=== PATIENT | male | born 1925 | race Caucasian/White ===

== ENCOUNTER 2017-04-28 17:35 | Emergency (ER) | payer OTHER, MEDICARE ==
[~2017-04-28] VITALS: Ht 182.9 cm; Wt 92.1 kg
--- NOTE | 2017-04-28 17:50 | ED NEURO DEFICIT/STROKE ---
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 Source: patient, old records Exam Limitations: no limitations Vital Signs & Intake/Output Vital Signs & Intake/Output Vital Signs Date Time Temp Pulse Resp B/P B/P Pulse O2 O2 Flow FiO2 Mean Ox Delivery Rate 04/28 1954 98.7 79 17 162/94 96 Room Air 04/28 1855 98.5 78 18 170/94 96 04/28 1834 99 Room Air Allergies Coded Allergies: No Known Allergies (04/28/17) Reconcile Medications Apixaban (Eliquis) 5 MG TABLET 1 TAB PO DAILY BLOOD THINNER (Reported) Metoprolol Tartrate 50 MG TABLET 1 TAB PO BID HEART/BP (Reported) Multivitamin (Multi-Day Vitamins) 1 EACH TABLET 1 TAB PO DAILY SUPPLEMENT ( Reported) Pantoprazole Sodium 40 MG TABLET.DR 1 TAB PO DAILY GI (Reported) Simvastatin (Simvastatin*) 20 MG TABLET 1 TAB PO QPM CHOLESTEROL (Reported) Triage Note: PT TO ED FOR L ARM NUMBNESS/TINGLING THAT STARTED APPROX 30 MINS ICE HOCKEY COACH AFTER BENDING ON FLOOR. PT ALSO FELT NAUSEAS AFTER STANDING UP. ALL NEUROS IN TACT, PER FAMILY NO SLURRED SPEECH OR CHANGE IN MENTATION. PT A/O X 3 IN TRIAGE. DENIES CHEST PAIN OR SOB. Triage Nurses Notes Reviewed? yes Onset: Abrupt Duration: hour(s): (1), constant Timing: recent history Severity: mild, moderate Altered Sensations: LUE Vision Problem? No Baseline: alert, oriented x 3 Associated Symptoms: denies HPI: 89-year-old male with history of A. fib colon cancer with colostomy, TIAs on elliquis presents to ER for evaluation with his family complaining of left arm tingling numbness that came on sudden in onset. The patient states that he was on his hands and knees in the bathroom attempting to find a screw that a lot of the door area states when he stood back up if he had the symptoms. He denies any decreased strength in his arm. No pain no right arm or lower extremity numbness tingling or pain. No headache he did not hit his head no neck or back pain chest pain palpitations. No history of similar symptoms in the past no change in his mental status per family no facial droop no slurred speech. The patient denies any facial numbness. No vision changes no headache (SHANTANU LAYTON) Past History Travel History Traveled to [place] past 21 day No Medical History Any Pertinent Medical History? see below for history Cardiovascular: AFIB, PACER MAKER Gastrointestinal: COLOSTOMY Cancer(s): COLON CANCER Surgical History Surgical History: non-contributory Psychosocial History Who do you live with Spouse What is your primary language Czech Tobacco Use: Quit >30 days ago ETOH Use: denies use Illicit Drug Use: denies illicit drug use Family History Hx Contributory? No (SHANTANU LAYTON) Review of Systems Review of Systems Constitutional: Reports: see HPI. All Other Systems: Reviewed and Negative Comments Review of systems: See HPI, All other systems negative. Constitutional, no chills no fever, no malaise HEENT: No visual changes no sore throat no congestion, no ear pain Cardiovascular: No chest pain , no palpitation , no orthopnea Skin: no rashes, no change in skin Respiratory: No dyspnea no cough no sputum GI: No nausea no vomiting, no diarrhea, : No dysuria No hematuria, no frequency Muscle skeletal: No joint pain, no joint swelling, no back pain, no neck pain, Neurologic: numbness no confusion, no headache Psych: No stress no depression,. Heme/endocrine: No bruising no bleeding Immunology: No lymphadenopathy (SHANTANU LAYTON) Physical Exam Physical Exam General Appearance: well developed/nourished, alert, awake Cranial Nerves: normal hearing, normal speech, PERRL Reflexes: 2+: tricep (L), tricep (L). Comments: Well-developed well-nourished person in no acute distress HEENT: Normal EENT exam; PERRL, EOMI, no nystagmus. HEAD is atraumatic. moist mucous membranes. Neck: Supple, no bruit normal range of motion Back: Nontender, no CVA tenderness. Full range of motion Cardiovascular: Regular rate and rhythms no murmurs rubs Respiratory: Chest nontender.There were no bony deformities, no asymmetry. No respiratory distress. Patient speaking in full complete sentences. Breath sounds clear to auscultation bilaterally: NO W/R/R Abdomen: Soft, nontender nondistended, no appreciable organomegaly. Normal bowel sounds. No rebound/guarding, Extremity: No edema, full range of motion of extremities, normal and equal pulses bilaterally, 5 out of 5 strength noted to bilateral upper and lower extremities Neuro: Alert oriented x3, motor sensory normal, There were no obvious focal neurologic abnormalities. Skin: No appreciable rash on exposed skin, skin is warm and dry. Psych: Mood and affect is normal, memory and judgment is normal. Core Measures CVA/TIA Diagnosis: No Severe Sepsis Present: No Septic Shock Present: No (JEAN MARCANO,SHANTANU) Progress Differential Diagnosis: electrolyte imbalance, hypoglycemia, intracranial Hem., intracranial mass/tumor, migraine HANSON, stroke, subarachnoid Hem., vertebrobasilar insuff., cervical radiculopathy Plan of Care: Orders Procedure Date/time Status Telemetry/Tray Filler 04/28 1800 Active PARTIAL THROMBOPLASTIN TIME 04/28 1800 Complete PROTHROMBIN TIME 04/28 1800 Complete TROPONIN LEVEL 04/28 1745 Complete COMPREHENSIVE METABOLIC PANEL 04/28 1745 Complete CBC WITHOUT DIFFERENTIAL 04/28 1745 Complete EKG 04/28 1745 Active Laboratory Tests 04/28/17 1854: Anion Gap 10, Estimated GFR > 60, BUN/Creatinine Ratio 13.8, Glucose 106 H, Calcium 8.9, Total Bilirubin 0.6, AST 11 L, ALT 35, Alkaline Phosphatase 70, Troponin I < 0.01, Total Protein 6.6, Albumin 4.0, Globulin 2.6, Albumin/ Globulin Ratio 1.5 04/28/17 1828: PT 13.6 H, INR 1.30 H, APTT 34, CBC w Diff NO MAN DIFF REQ, RBC 4.22 L, MCV 95.6 H, MCH 32.4 H, RDW 14.0, MPV 8.3, Gran % 74.2, Lymphocytes % 11.9 L, Monocytes % 7.1, Eosinophils % 4.8, Basophils % 2.0, Absolute Granulocytes 5.5, Absolute Lymphocytes 0.9 L, Absolute Monocytes 0.5, Absolute Eosinophils 0.4, Absolute Basophils 0.1, PUBS MCHC 33.9 Labs ordered old records reviewed CAT scan ordered case discussed with Dr. walker 04/28/2017 7:49:05 PM patient reports his symptoms have resolved. pt amb around the er with steady gait I discussed with the patient at length all of their results. I advised that he continue check his blood pressures at home they have a monitor and will use it he'll follow-up with Dr. Tellez tomorrow I had an extensive conversation regarding need for close follow up with their primary care physician this week as well as return precautions. I answered all of their questions, they feel comfortable with the plan and follow-up care. (SHANTANU LAYTON) Diagnostic Imaging: Viewed by Me: CT Scan. Discussed w/RAD: CT Scan. Radiology Impression: PATIENT: PAIGE BLOUNT PRESENT AGE: 89 PATIENT ACCOUNT NO: [id number] : [birth year] LOCATION: [facility] ORDERING PHYSICIAN: SHANTANU MARCANO SERVICE DATE: 04/28/17 EXAM TYPE: CAT - CT HEAD WO IV CONTRAST EXAMINATION: CT HEAD WITHOUT CONTRAST CLINICAL INFORMATION: Left arm numbness. Assess for intracranial hemorrhage. COMPARISON: Head CT performed 07/10/2016. TECHNIQUE: Contiguous axial imaging was performed from the skull base to vertex without intravenous administration of contrast. DLP: 701 mGy-cm FINDINGS: There is no evidence of acute intracranial hemorrhage or territorial infarction. No abnormal mass effect or midline shift is seen. Saenz to white matter differentiation is well preserved. No extra-axial fluid collections are identified. The ventricles and sulcal spaces are proportionate without hydrocephalus. There is diffuse periventricular white matter hypoattenuation, which is consistent with sequela of ischemic microangiopathy. The osseous structures and soft tissues demonstrate no acute abnormalities. Mastoid air cells are aerated. Mild paranasal sinus mucosal thickening. IMPRESSION: No acute intracranial pathology. 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 DICTATED BY: REBEKAH PARK MD DATE/TIME DICTATED:04/28/171847 DEMAND PLANNING ANALYST:DEEP DATE/TIME TRANSCRIBED:04/28/171847 CONFIDENTIAL, DO NOT COPY WITHOUT APPROPRIATE AUTHORIZATION. <Electronically signed in Other Vendor System> SIGNED BY: REEBKAH PARK MD 04/28/171857 Initial ED EKG: V paced at 70, no acute ST segment changes left bundle branch block Prior EKG: unchanged (11/2013) (SHANTANU LAYTON) Departure Departure Time of Disposition: 1948 Disposition: HOME OR SELF CARE Condition: Stable Clinical Impression Primary Impression: Arm paresthesia, left Referrals: Lida TELLEZ MD (PCP/Family) Additional Instructions: Follow up with Dr. Tellez tomorrow. Return to ER anytime sooner with any concerns. Departure Forms: Customer Survey General Discharge Information (JEAN MARCANO,SHANTANU) PA/DELPHI PROGRAMMER Co-Sign Statement Statement: ED Attending supervision documentation- [] I saw and evaluated the patient. I have also reviewed all the pertinent lab results and diagnostic results. I agree with the findings and the plan of care as documented in the PA's/DELPHI PROGRAMMER's documentation. [x] I have reviewed the ED Record and agree with the PA's/DELPHI PROGRAMMER's documentation. [] Additions or exceptions (if any) to the PAs/DELPHI PROGRAMMER's note and plan are summarized below: [] (NIDIA ORDONEZ,CINDI Basilio)
[2017-04-28 18:51] LABS: ABSOLUTE BASOPHIL COUNT 0.1 /CUMM (0.0-0.2); ABSOLUTE EOSINOPHIL COUNT 0.4 /CUMM (0.0-0.7); ABSOLUTE GRANULOCYTE CT 5.5 /CUMM (1.4-6.5); ABSOLUTE LYMPH COUNT 0.9 /CUMM (1.2-3.4); ABSOLUTE MONOCYTE COUNT 0.5 /CUMM (0.10-0.60); EOSINOPHIL % 4.8 % (0-5); GRANULOCYTE % 74.2 % (42.2-75.2); HEMATOCRIT 40.4 % (42-52); MEAN CORPUSCULAR HGB 32.4 PG (27.0-31.0); MEAN CORPUSCULAR HGB CONC 33.9 G/DL (33.0-37.0); MEAN CORPUSCULAR VOLUME 95.6 FL (80.0-94.0); MEAN PLATELET VOLUME 8.3 FL (7.4-10.4); PLATELET COUNT 181 /CUMM (130-400); RED BLOOD CELL CT 4.22 /CUMM (4.70-6.10); WHITE BLOOD CELL COUNT 7.4 /CUMM (4.8-10.8)
--- NOTE | 2017-04-28 18:58 | CT SCAN REPORT ---
EXAMINATION: CT HEAD WITHOUT CONTRAST CLINICAL INFORMATION: Left arm numbness. Assess for intracranial hemorrhage. COMPARISON: Head CT performed 07/10/2016. TECHNIQUE: Contiguous axial imaging was performed from the skull base to vertex without intravenous administration of contrast. DLP: 701 mGy-cm FINDINGS: There is no evidence of acute intracranial hemorrhage or territorial infarction. No abnormal mass effect or midline shift is seen. Saenz to white matter differentiation is well preserved. No extra-axial fluid collections are identified. The ventricles and sulcal spaces are proportionate without hydrocephalus. There is diffuse periventricular white matter hypoattenuation, which is consistent with sequela of ischemic microangiopathy. The osseous structures and soft tissues demonstrate no acute abnormalities. Mastoid air cells are aerated. Mild paranasal sinus mucosal thickening. IMPRESSION: No acute intracranial pathology. 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
[2017-04-28] MEDS ORDERED: METOPROLOL TART50 M1 PO (19:02)
[2017-04-28] MEDS ORDERED: SIMVASTATIN20 M2 PO (19:03)
[2017-04-28] MEDS ORDERED: MULTI-DAY VITA1 EACH PO (19:03)
[2017-04-28] MEDS ORDERED: ELIQUIS5 M1 PO (19:03)
[2017-04-28] MEDS ORDERED: PANTOPRAZOLE SO40 M1 PO (19:03)
[2017-04-28 19:06] LABS: PT 13.6 SEC (9.4-12.5); PTT 34 SEC (25-37)
[2017-04-28 19:54] VITALS: BP 162/94
== END 2017-04-28 20:00 ==
LOC: ERH 17:35
PROVIDERS: Emergency Medicine; Physician Assistant Medical
DX: R20.2 Paresthesia of skin (principal); I48.91 Unspecified atrial fibrillation; Z79.01 Long term (current) use of anticoagulants; Z95.0 Presence of cardiac pacemaker
CPT/HCPCS: 93005; 93010